=== PATIENT | male | born 1980 | race Hispanic/Latino ===

== ENCOUNTER 2016-11-03 01:40 | Observation (INO) | payer SELFPAY ==
[2016-11-03 01:52] VITALS: RESP 18; TEMP 98.6; O2SAT 98
--- NOTE | 2016-11-03 02:45 | C.PDOC ---
History Of Present Illness Patient was brought to the ER by police for public intoxication. Denies physical complaints at this time. Time Seen by Provider: 11/03/16 01:52 Chief Complaint (Nursing): Substance Abuse History Per: Patient, EMS History/Exam Limitations: no limitations Onset/Duration Of Symptoms: Hrs Current Symptoms Are (Timing): Still Present Suicide/Self Injury Attempted (Context): None Modifying Factor(s): Alcohol Severity: None Pain Scale Rating Of: 0 Associated Symptoms: denies: Depression, Suicidal Thoughts, Suicidal Plan Involuntary Hold By: None Recent travel outside of the [place]: No Past Medical History Reviewed: Historical Data, Nursing Documentation, Vital Signs Vital Signs: Last Vital Signs Temp 98.6 F 11/03/16 01:40 Pulse 75 11/03/16 05:50 Resp 18 11/03/16 05:50 BP 124/75 11/03/16 05:50 Pulse Ox 98 11/03/16 05:50 - Medical History PMH: No Chronic Diseases Surgical History: No Surg Hx Family History: States: No Known Family Hx - Social History Hx Alcohol Use: Yes Hx Substance Use: No - Immunization History Hx Tetanus Toxoid Vaccination: No Review Of Systems Constitutional: Negative for: Fever, Chills Gastrointestinal: Negative for: Nausea, Vomiting, Diarrhea Physical Exam - Physical Exam Appears: Non-toxic, Other (ETOH on breath) Skin: Warm, Dry Head: Abrasion (to occipital area, no active bleeding) Chest: Symmetrical, No Tenderness Cardiovascular: Rhythm Regular, No Murmur Respiratory: No Rales, No Rhonchi, No Wheezing Gastrointestinal/Abdominal: Soft, No Tenderness Neurological/Psych: Oriented x3 ED Course And Treatment O2 Sat by Pulse Oximetry: 98 (Room air) Pulse Ox Interpretation: Normal ED OBSERVATION Discharge: Yes Date of observation admission: 11/03/16 Time of observation admission: 02:19 - Observation admission statement Patient is being placed in observation because:: Acute ETOH intoxication - Goals of Observation Goals of observation are:: Sobriety - Progress Note Progress Note: 11/03/16 02:16 vitals stable Disposition Counseled Patient/Family Regarding: Studies Performed, Diagnosis, Need For Followup - Disposition Disposition: HOME/ ROUTINE Disposition Time: 06:32 Condition: FAIR - Clinical Impression Clinical Impression: Alcohol intoxication, Scalp abrasion - Scribe Statement The provider has reviewed the documentation as recorded by the Scribcaryl Lo All medical record entries made by the Jayesh were at my direction and personally dictated by me. I have reviewed the chart and agree that the record accurately reflects my personal performance of the history, physical exam, medical decision making, and the department course for this patient. I have also personally directed, reviewed, and agree with the discharge instructions and disposition.
[2016-11-03 05:51] VITALS: BP 124/75; PULSE 75
== END 2016-11-03 06:02 | disposition home or self-care (01) ==
LOC: C.ER 01:40 → C.9OBSV 03:16
PROVIDERS: ADMIT Emergency Medicine; ATTEND Emergency Medicine
DX: F10.129 Alcohol abuse with intoxication, unspecified (principal); S00.01XA Abrasion of scalp, initial encounter
CPT/HCPCS: 82948; 99283; G0378